=== PATIENT | female | born 1990 | race Asian ===

== ENCOUNTER 2024-12-31 15:00 | Emergency (ER) | payer OTHER, SELFPAY ==
--- NOTE | ~2024-12-31 | XR_ITS ---
XR toe 5th LT min 2V Ordering provider: HEIDY Rodriguez History: . hit on ottoman, bruising of 5th digit, pain . Comparison: None. FINDINGS: BONES: No acute fracture or dislocation. JOINT SPACES: Normal. SOFT TISSUES: Normal. IMPRESSION: No acute osseous abnormality. Reviewed, dictated and finalized at location A.
--- NOTE | 2024-12-31 15:02 | ED_ITS ---
HPI - General Adult General Chief complaint: Extremity Injury, Lower Stated complaint: L FOOT INJURY Time Seen by Provider: 12/31/24 15:02 Source: patient Mode of arrival: ambulatory Limitations: no limitations History of Present Illness HPI narrative: 34-year-old female patient presents to the [facility] with complaints of left pinky toe pain. Patient states that she was walking last night in the dark and hit her left pinky toe on an automated foot. Patient states she has been icing it and elevating it but denies taking any Tylenol or Motrin for pain. Patient states she came today could she noticed there is a lot of bruising to the pinky toe. Patient has been able to walk on it denies any numbness or tingling to the toe. Related Data Home Medications ?Medication ?Instructions ?Recorded ?Confirmed ?Last Taken ?Type No Home Medications 12/31/24 12/31/24 Unknown History Allergies Allergy/AdvReac Type Severity Reaction Status Date / Time No Known Allergies Allergy Verified 12/31/24 15:13 Review of Systems Review of Systems: CONSTITUTIONAL: Denies fever, chills, or sweats. EYES: Denies visual changes, redness, or discharge. ENT: Denies rhinorrhea, congestion, sore throat, or otalgia. CARDIOVASCULAR: Denies chest pain, palpitations, or edema. RESPIRATORY: Denies cough or dyspnea. GASTROINTESTINAL: Denies abdominal pain, nausea, vomiting, or diarrhea. GENITOURINARY: Denies dysuria or hematuria. SKIN: Denies rash or itching. MUSCULOSKELETAL: Denies back pain, joint pain, or myalgia. Positive left foot pinky toe NEUROLOGIC: Denies headache, numbness, or weakness. PSYCHIATRIC: Denies anxiety or depression. [facility] Past Medical History Medical History (Updated 12/31/24 @ 15:50 by HEIDY Rodriguez) No significant past medical history Comments At the time of my signature I agree with nursing past medical history, surgical, social, and family history. There is no relevant family history pertinent to the presenting complaint. Exam Narrative: GENERAL: Well-appearing, well-nourished, and in no acute distress. HEAD: Normocephalic, atraumatic. EYES: PERRLA and EOMI. ENT: Nares clear, no rhinorrhea or epistaxis. Mucous membranes moist. NECK: Supple. No lymphadenopathy CHEST: Clear to auscultation. No respiratory distress. HEART: Regular rate and rhythm. No murmur heard. Normal peripheral pulses. ABDOMEN: Soft, nontender, nondistended, normal active bowel sounds. EXTREMITIES: Patient able to bear weight and ambulate without pain. purple ecchymosis noted to the left pinky toe. Noerythema, lesions, ulcers or break in skin integrity. The L foot is without obvious asymmetry or deformity when compared to the R foot. No bony step-off, tender to palpation over the toes left pinky toe, no tenderness over the midfoot or hindfoot or sole. Normal plantar/dorsiflexion, inversion/eversion. Distal motor and neurovascular status are intact SKIN: Warm, dry, no rash. NEURO: No focal deficits. Alert and oriented x3. Course Course Level of Care: Express Care Visit Vital Signs Vital signs: Vital Signs Temperature 36.6 C 12/31/24 15:09 Pulse Rate 77 12/31/24 15:09 Respiratory Rate 16 12/31/24 15:09 Blood Pressure 111/66 12/31/24 15:09 Pulse Oximetry 100 12/31/24 15:09 Temperature 36.6 C 12/31/24 15:09 Pulse Rate 77 12/31/24 15:09 Respiratory Rate 16 12/31/24 15:09 Blood Pressure 111/66 12/31/24 15:09 Pulse Oximetry 100 12/31/24 15:09 Vital signs reviewed. Medical Decision Making MDM Narrative Medical decision making narrative: plan of care for patient is to x-ray the pinky toe to assess for any acute fracture. I will reassess patient was this has resulted. Differential Diagnosis Differential Diagnosis: Differential diagnosis: Foot fracture, crush injury, compartment syndrome, contusion, sprain, tendinitis,lisfranc sprain or fracture, avulsion fracture, grown toenail, diabetic ulcer. Vital Signs Vital Signs: Vital Signs Temperature 36.6 C 12/31/24 15:09 Pulse Rate 77 12/31/24 15:09 Respiratory Rate 16 12/31/24 15:09 Blood Pressure 111/66 12/31/24 15:09 Pulse Oximetry 100 12/31/24 15:09 Temperature 36.6 C 12/31/24 15:09 Pulse Rate 77 12/31/24 15:09 Respiratory Rate 16 12/31/24 15:09 Blood Pressure 111/66 12/31/24 15:09 Pulse Oximetry 100 12/31/24 15:09 Imaging Data Radiologist's impression: [facility] [address] [place] [address] [place] [address] XRay Report Signed Patient: Luz Somers I : 1990 MR#: [id number] Age: 34 Acct:[id number] Loc: [id number] ADM Date: 12/31/24Attending Dr: Ordering Physician: April Espinoza [employer] Date of Service: 12/31/24 Procedure(s): XR toe 5th LT min 2V Accession Number(s): [id number] cc: UNKNOWN,DOCTOR; April Espinoza [employer]ER~ XR toe 5th LT min 2V Ordering provider: HEIDY Rodriguez History: . hit on ottoman, bruising of 5th digit, pain . Comparison: None. FINDINGS: BONES: No acute fracture or dislocation. JOINT SPACES: Normal. SOFT TISSUES: Normal. IMPRESSION: No acute osseous abnormality. Reviewed, dictated and finalized at location A. Critical Care Time Critical Care Time Critical Care Time: No Discharge Plan Discharge Clinical Impression: Contusion of toe of left foot Qualifiers: Encounter type: initial encounter Toe: lesser toe Damage to nail status: withou t damage Qualified Code(s): S90.122A - Contusion of left lesser toe(s) without damage to nail, initial encounter Patient Disposition: Home Condition: Stable Instructions: Antibiotic Form, Foot Contusion (ED) Additional Instructions: Ice to the area 20-30 minutes 4-6 times a day Elevate above heart Elastic wrap or orthopedic splint as directed for comfort for the next 5-7 days Tylenol for lesser pain Ibuprofen regularly for the next 2-3 days for the inflammation Follow up with your primary care provider if the condition is not improving within 1 week or sooner if the Condition worsens with numbness, tingling, decrease sensation with weakness to seek ER. Patient Language: Tamazight Prescriptions: No Action No Home Medications Follow-up/Referrals: UNKNOWN,DOCTOR [Primary Care Provider] - Time of Disposition: 15:50
[2024-12-31 15:09] VITALS: BP 111/66; PULSE 77; RESP 16; TEMP 36.6; O2SAT 100
== END 2024-12-31 15:53 | disposition home or self-care (01) ==
PROVIDERS: Emergency Provider Nurse Practitioner Family
DX: S90.122A Contusion of left lesser toe(s) without damage to nail, initial encounter (principal); W22.8XXA Striking against or struck by other objects, initial encounter
CPT/HCPCS: 73660; 99213; G0463